=== PATIENT | female | born 1960 | race Caucasian/White ===

== ENCOUNTER 2024-07-29 07:41 | Inpatient (IN) | payer MEDICARE ==
[~2024-07-29] VITALS: Ht 165.1 cm; Wt 49.9 kg
[2024-07-29] MEDS: SODIUM CHLORIDE 0.9% 1,000 ML IV ONE (08:35)
[2024-07-29 10:08] LABS: HEMOGLOBIN. 11.1 g/dL (12.0-16.0); MEAN CORPUSCULAR HEMOGLOBIN 35.1 pg (28.0-32.0); MEAN CORPUSCULAR HGB CONC 31.8 g/dL (31.0-37.0); MEAN CORPUSCULAR VOLUME 110.3 fL (81.0-99.0); MEAN PLATELET VOLUME 7.6 fl (7.4-10.4); PLATELET 85 x1000/uL (130-400); RED BLOOD CELL COUNT 3.17 mill/uL (4.2-5.4); RED CELL DISTRIBUTION WIDTH 19.7 % (11.6-14.6); WHITE BLOOD COUNT 7.1 x1000/uL (4.5-11.0)
[2024-07-29 10:15] LABS: CHLORIDE 100 mEq/L (98-107); POTASSIUM 4.4 mEq/L (3.5-5.1); SODIUM 130 mEq/L (136-145)
[2024-07-29 10:17] LABS: CALCIUM 8.4 mg/dL (8.7-10.4); CARBON DIOXIDE 18 mEq/L (21-32)
[2024-07-29 10:18] LABS: D-DIMER 17.84 mg/L FEU (<0.50); INR 1.6; PROTHROMBIN TIME 16.8 sec (9.6-11.0)
[2024-07-29 10:21] LABS: DIFFERENTIAL COMMENT 1; LACTIC ACID 3.3 mmol/L (0.4-2.0)
[2024-07-29 10:22] LABS: CREATININE 0.8 mg/dL (0.6-1.0); GLUCOSE 133 mg/dL (70-105); TROPONIN I HIGH SENSITIVITY 5 ng/L (3.0-34)
[2024-07-29 10:23] LABS: UREA NITROGEN BLOOD 16 mg/dL (9-23)
[2024-07-29 10:24] LABS: ALANINE AMINOTRANSFERASE 58 IU/L (10-49); ALBUMIN 2.5 g/dL (3.2-4.8); BILIRUBIN DIRECT 4.7 mg/dL (<=3.0)
[2024-07-29 10:25] LABS: BILIRUBIN TOTAL 7.9 mg/dL (0.1-1.0); PROTEIN TOTAL 7.2 g/dL (6.0-8.3)
[2024-07-29 10:26] LABS: ASPARTATE AMINOTRANSFERASE 105 IU/L (<34)
[2024-07-29 10:39] LABS: AMMONIA 202 uMol/L (<32)
[2024-07-29 11:00] LABS: BG BASE EXCESS -2.3 mmol/L (-2.0-3.0); BG CARBOXYHEMOGLOBIN 1.2 % (0.5-1.5); BG DEOXYHEMOGLOBIN 1.4 % (0.0-5.0); BG FLOW(L/min) 0 L/min; BG FRACTION INSPIRED OXYGEN 21; BG HCO3 ACT 18.8 mmol/L (21.0-28.0); BG METHEMOGLOBIN 0.3 % (0.5-1.5); BG OXYGEN SATURATION 98.6 % (94.0-98.0); BG OXYHEMOGLOBIN 97.1 % (94.0-98.0); BG PCO2 22.6 mmHg (32.0-45.0); BG PH 7.539 (7.350-7.450); BG PO2 110.1 mmHg (83.0-108.0); BG SAMPLE SITE RIGHT RADIAL; BG TOTAL HEMOGLOBIN 10.8 g/dL (12.0-16.0); BG VENT MODE ROOM AIR
[2024-07-29] MEDS: VANCOMYCIN 1GM/200ML PMX (BAXTER) IV SCH (11:00)
[2024-07-29 11:03] LABS: PLATELET ESTIMATE DECREASED
[2024-07-29 11:04] LABS: ANISOCYTOSIS 2+
[2024-07-29 11:19] LABS: ETHANOL BLOOD < 10 mg/dL (<10)
[2024-07-29] MEDS: PIPERACILLIN/TAZO 3.375G/50ML 50 ML IV SCH (11:38)
[2024-07-29] MEDS: DEXT 5%/0.45% NACL 1000ML 1,000 ML IV SCH (11:45)
[2024-07-29] MEDS ORDERED: IPRATROPIUM/ALBUTEROL 0.5-3(2.5)MG/3ML NEB HHN PRN (11:45)
[2024-07-29] MEDS: PANTOPRAZOLE SODIUM 40 MG/VIAL IV SCH (11:45)
[2024-07-29] MEDS ORDERED: ONDANSETRON HCL 4MG/2ML INJ IV PRN (11:45)
[2024-07-29] MEDS ORDERED: ACETAMINOPHEN 650MG SUPP PR PRN ×2 (11:45)
[2024-07-29] MEDS ORDERED: LACTULOSE ENEMA 1,000ML BOTTLE PR PRN (11:45)
[2024-07-29] MEDS: LACTULOSE ENEMA 1,000ML BOTTLE PR NR (12:17)
[2024-07-29] MEDS: IPRATROPIUM/ALBUTEROL 0.5-3(2.5)MG/3ML NEB HHN SCH (14:11)
[2024-07-29 14:14] VITALS: PULSE 80; RESP 18; O2SAT 100
[2024-07-29 17:49] VITALS: PULSE 96; RESP 20
[2024-07-29 20:00] VITALS: BP 119/57; PULSE 59; RESP 16; TEMP 36.33624; O2SAT 96
[2024-07-29] MEDS ORDERED: VANCOMYCIN 500 MG in DEXT 5% WATER 100 ML IV SCH (21:00)
[2024-07-29 22:22] LABS: AMMONIA 134 uMol/L (<32)
[2024-07-29] MEDS: VANCOMYCIN 500MG PREMIX 100 ML IV SCH (23:27)
[2024-07-29] MEDS: LACTULOSE ENEMA 1,000ML BOTTLE PR PRN (23:27)
[2024-07-29 23:47] VITALS: BP 121/62; PULSE 75; RESP 20; TEMP 36.6404
[2024-07-30] VITALS (9 sets, daily range): BP systolic 111–138; BP diastolic 54–79; PULSE 76–110; RESP 16–20; TEMP 36.05844–36.61404; O2SAT 96–100
[2024-07-30] MEDS ORDERED: NALO4SPR NS (03:35)
[2024-07-30] MEDS ORDERED: LACT10SO81 MT (03:35)
[2024-07-30] MEDS ORDERED: LIDO35.421 TP (03:35)
[2024-07-30] MEDS ORDERED: SPIR100T5 PO (03:35)
[2024-07-30] MEDS ORDERED: GABA-529 PO (03:35)
[2024-07-30] MEDS: MORPHINE SULFATE 2 MG/ML INJ (NOT FOR IM USE) IV PRN (10:39)
[2024-07-30 13:52] LABS: CHLORIDE 104 mEq/L (98-107); POTASSIUM 3.7 mEq/L (3.5-5.1); SODIUM 133 mEq/L (136-145)
[2024-07-30 13:53] LABS: CARBON DIOXIDE 19 mEq/L (21-32)
[2024-07-30 13:54] LABS: CALCIUM 7.7 mg/dL (8.7-10.4)
[2024-07-30 13:58] LABS: CREATININE 0.8 mg/dL (0.6-1.0); GLUCOSE 166 mg/dL (70-105)
[2024-07-30 13:59] LABS: AMMONIA 85 uMol/L (<32); UREA NITROGEN BLOOD 18 mg/dL (9-23)
[2024-07-30 15:42] LABS: CLARITY URINE CLEAR (CLEAR); COLOR URINE DARK YELLOW (YELLOW); GLUCOSE URINE NEGATIVE (NEGATIVE); KETONES URINE NEGATIVE (NEGATIVE); LEUKOCYTE ESTERASE URINE NEGATIVE (NEGATIVE); NITRITE URINE NEGATIVE (NEGATIVE); OCCULT BLOOD URINE NEGATIVE (NEGATIVE); PH URINE 6.5 (4.5-8.0); PROTEIN URINE NEGATIVE (NEGATIVE)
[2024-07-30 15:55] LABS: *AMPHETAMINES SCREEN URINE NEGATIVE (NEGATIVE); *BARBITURATES SCREEN URINE NEGATIVE (NEGATIVE); *BENZODIAZEPINES SCREEN URINE NEGATIVE (NEGATIVE); *COCAINE SCREEN URINE NEGATIVE (NEGATIVE)
[2024-07-30 15:56] LABS: CANNABINOID URINE SCREEN NEGATIVE (NEGATIVE); ECSTASY MDMA SCREEN URINE NEGATIVE (NEGATIVE); METHADONE URINE SCREEN NEGATIVE (NEGATIVE); OPIATES URINE SCREEN PRESUMPTIVE POSITIVE (NEGATIVE); PHENCYCLIDINE URINE SCREEN NEGATIVE (NEGATIVE)
[2024-07-30 18:30] LABS: HEMATOCRIT. 27.8 % (36.0-48.0); HEMOGLOBIN. 9.6 g/dL (12.0-16.0); MEAN CORPUSCULAR HEMOGLOBIN 36.3 pg (28.0-32.0); MEAN CORPUSCULAR HGB CONC 34.5 g/dL (31.0-37.0); MEAN CORPUSCULAR VOLUME 105.2 fL (81.0-99.0); RED BLOOD CELL COUNT 2.64 mill/uL (4.2-5.4); RED CELL DISTRIBUTION WIDTH 18.5 % (11.6-14.6); WHITE BLOOD COUNT 7.8 x1000/uL (4.5-11.0)
[2024-07-30 18:38] LABS: DIFFERENTIAL COMMENT 1
[2024-07-30 18:56] LABS: MEAN PLATELET VOLUME 7.6 fl (7.4-10.4); PLATELET 96 x1000/uL (130-400)
[2024-07-30 18:58] LABS: ANISOCYTOSIS 1+; PLATELET ESTIMATE DECREASED
[2024-07-31] VITALS (8 sets, daily range): BP systolic 102–125; BP diastolic 60–89; PULSE 70–100; RESP 16–22; TEMP 36.00288–36.89184; O2SAT 96–100
[2024-08-01] VITALS (7 sets, daily range): BP systolic 92–120; BP diastolic 58–73; PULSE 77–92; RESP 18–20; TEMP 36.05844–36.44736; O2SAT 93–98
[2024-08-01] MEDS: VANCOMYCIN 750MG/150ML (BAXTER) IV SCH (07:57)
[2024-08-02] VITALS: BP 103/51; PULSE 88; RESP 18; TEMP 36.16956; O2SAT 96
[2024-08-02 00:35] VITALS: PULSE 86; RESP 16
[2024-08-02 08:00] VITALS: BP 102/54; PULSE 84; RESP 19; TEMP 36.3918; TEMP 36.39180; O2SAT 97
[2024-08-02 08:55] VITALS: PULSE 93; RESP 20
== END 2024-08-02 15:08 | disposition hospice, home (50) | DRG 871 ==
LOC: ER 07:41 → 5WST 10:31 → EDBEDREQ 10:42 → 7WST 20:25 → 6WST 07-31 12:54
PROVIDERS: ADMIT Internal Medicine; ATTEND Internal Medicine
DX: A41.9 Sepsis, unspecified organism (principal); G92.8 Other toxic encephalopathy; J18.9 Pneumonia, unspecified organism; K76.6 Portal hypertension; E87.3 Alkalosis; E87.1 Hypo-osmolality and hyponatremia; R18.8 Other ascites; C78.7 Secondary malignant neoplasm of liver and intrahepatic bile duct; K76.82 Hepatic encephalopathy; K74.60 Unspecified cirrhosis of liver; R65.20 Severe sepsis without septic shock; E80.6 Other disorders of bilirubin metabolism; D63.8 Anemia in other chronic diseases classified elsewhere; L89.159 Pressure ulcer of sacral region, unspecified stage; Z66 Do not resuscitate; Z85.038 Personal history of other malignant neoplasm of large intestine; Z79.899 Other long term (current) drug therapy
CPT/HCPCS: 36415; 36600; 71045; 80048; 80076; 80202; 80305; 80320; 81003; 82140; 82375; 82805; 83605; 84145; 84484; 85025; 85379; 86705; 87340; 93005; 94640; 99291; J2270; J2470; J2543; J3370; J7030; G0480